=== PATIENT | female | born 1980 | race Caucasian/White ===

== ENCOUNTER 2019-01-28 04:41 | Inpatient (IN) | payer BC ==
[2019-01-28] MEDS ORDERED: MIDAZOLAM HCL 2 MG/2 ML INJ IV PRN (04:48)
[2019-01-28] MEDS ORDERED: PROMETHAZINE 25 MG/ML VIAL IV PRN (04:48)
[2019-01-28] MEDS ORDERED: MEPERIDINE HCL 25 MG/0.5 ML IV PRN (04:48)
[2019-01-28] MEDS ORDERED: Ringers Lactate 1,000 ML IV PRN (04:48)
[2019-01-28] MEDS ORDERED: METHYLERGONOVINE 0.2MG/ML AMP IM PRN (04:48)
[2019-01-28] MEDS ORDERED: BUTORPHANOL 1 MG/ML INJ IV PRN (04:48)
[2019-01-28] MEDS ORDERED: Ringers Lactate 1,000 ML IV SCH (05:00)
[2019-01-28] MEDS ORDERED: BUPIVACAINE 0.25% PF 10 ML VIAL IV PRN (05:18)
[2019-01-28] MEDS ORDERED: FENTANYL CITR 100 MCG/2 ML IV ONE (05:19)
[2019-01-28] MEDS ORDERED: ROPIVACAINE HCL 100 ML IV PRN (05:19)
[2019-01-28 05:22] VITALS: BMI 27.1
[2019-01-28] MEDS ORDERED: OXYTOCIN/LR 20 UNIT/1,000 ML BAG IV ONE (05:32)
[2019-01-28 05:37] LABS: Urine Appearance CLEAR; Urine Bilirubin NEGATIVE (NEG); Urine Blood 1+ (NEG); Urine Color YELLOW; Urine Glucose NEGATIVE (NEG); Urine Microscopic Reflex ORDER UMIC; Urine Protein NEGATIVE (NEG); Urine Specific Gravity 1.025 (1.005-1.030); Urine Urobilinogen 0.2 mg/dL (0.2-1.0)
[2019-01-28 05:38] LABS: Absolute Lymphocytes (CBC) 2.4 K/uL (0.7-4.9); Basophils % 0.6 % (0-1.3); Hematocrit 42.1 % (36.0-45.0); Lymphocytes % 19.9 % (15.3-44.8); MPV 7.4 fL (7.6-11.3); RBC Red Blood Cell Count 4.56 M/uL (3.86-4.86)
[2019-01-28] MEDS ORDERED: PENICILLIN 5 MU in NA CHLORIDE 0.9% 100 ML IV ONE (06:00)
[2019-01-28] MEDS ORDERED: LIDOCAINE 1% MPF 30 ML VIAL ONE (06:03)
[2019-01-28 06:07] LABS: Urine Bacteria <20 /HPF (<20); Urine Culture Reflex Order NOT NEEDED
--- NOTE | 2019-01-28 07:00 | PREOPHP ---
Date of Admission: 01/28/2019 A 38-year-old, 2, para 1, 40 weeks gestation, followed initially by Dr. Darby then by Dr. Rhys mckeon. Admitted to Labor and delivery in active labor. Jam every 2 minutes at 5 cm with bu lging membranes. Rh negative. Has received RhoGAM during the . Rubella immune and beta st rep positive. Penicillin prophylaxis was ordered on admission. Vital signs all stable. No other si gnificant history. Delivery anticipated relatively soon. CAROLINE/JEANMARIE Voice ID: [id number]
--- NOTE | 2019-01-28 07:09 | DN ---
Surgeon: Allan Spear MD Summary: A 38-year-old, 2, para 1, 40 weeks gestation, Rh negative. Has received RhoGAM. B eta strep positive. One dose of 5 million units of penicillin ordered and given during the labor. P atient progressed rapidly at 9 cm, rupture of membranes, clear fluid. Second stage of about 20 minut es. Spontaneous vaginal delivery of estimated 6 pounds plus male . Apgars 9 and 9. Cord arou nd the shoulder area. Schultze delivery of the placenta, which was inspected and noted be intact and normal. Less than 300 cc blood loss. Small first-degree episiotomy performed and then developed in to a very small second-degree, all repaired with 2-0 chromic under local infiltration. The patient t olerated all procedures well. Final Diagnoses: Term intrauterine . Rh negative. RhoGAM pending. Beta strep positive. Penicillin prophylaxis given. Vaginal delivery. CAROLINE/JEANMARIE Voice ID: [id number] Report ID: [id number]
[2019-01-28] MEDS ORDERED: INFLUENZA VACCINE (for 3y+) 0.5 ML DOSE IMVAC ONE (09:00)
[2019-01-28] MEDS ORDERED: PENICILLIN 2.5 MU in NA CHLORIDE 0.9% 100 ML IV SCH (10:00)
[2019-01-28 16:03] LABS: RPR (Rapid Plasma Reagin) NON-REACT (NON-REACT)
--- NOTE | 2019-01-29 08:17 | P.PN ---
Date of Service: 01/29/19 S-No complaints O-Afeb, vs stable, possible intertrigo under breasts A-Satisfactory P-Lotrimin to under breast area, possible dismissal depending on infant status
[2019-01-29] MEDS ORDERED: CLOTRIMAZOLE 1% CREAM 15 GM TOP SCH (09:00)
[2019-01-30 07:40] VITALS: BP 116/78; TEMP 97.9
[2019-01-30] MEDS ORDERED: INFLUENZA VACCINE (for 3y+) 0.5 ML DOSE IMVAC ONE (09:00)
[2019-01-31 04:40] LABS: HBsAG Nonreactive (Nonreactive)
--- NOTE | 2019-02-01 10:26 | DS ---
Date of Discharge: 01/30/2019 Final Hospital Discharge Diagnosis: Term delivered, advanced maternal age. Complications: None. Procedures: Artificial rupture of membranes, spontaneous controlled vaginal delivery, midline episio aguilar with repair. Hospital Course: Patient is a 38-year-old female, 2, para 1-0-0-1, who was admitted in active rapidly advancing labor. She received 1 dose of penicillin for prophylaxis again st beta strep carriage, but did not receive a second dose because of the rapidity of labor. She deli sonya by spontaneous controlled vaginal delivery small episiotomy of a 6+ pound male . She was dismissed on the second day so could be monitored for evidence of infection. She was dismissed to be seen back in my office in 1 week for followup. Lab work included admission hemog lobin and hematocrit 14.8 and 42.1. Negative urinalysis. RPR was nonreactive. She has Rh negative blood type, cord blood type was Rh negative, so she did not need RhoGAM. She was dismissed with the usual post vaginal delivery activity restrictions, take ibuprofen or Tylenol for discomfort. FAWAD/JEANMARIE Voice ID: [id number] Report ID: [id number]
== END 2019-01-30 09:15 | disposition home or self-care (01) | DRG 807 ==
LOC: L&D 04:41 → 2ND-WC 04:49
PROVIDERS: ADMIT Specialist; ATTEND Specialist
PROC: 10E0XZZ Delivery of Products of Conception, External Approach (ICD-10-PCS; principal; 2019-01-28)
PROC: 0KQM0ZZ Repair Perineum Muscle, Open Approach (ICD-10-PCS; 2019-01-28)
PROC: 10907ZC Drainage of Amniotic Fluid, Therapeutic from Products of Conception, Via Natural or Artificial Opening (ICD-10-PCS; 2019-01-28)
DX: O70.1 Second degree perineal laceration during delivery (principal); Z37.0 Single live birth; O99.824 Streptococcus B carrier state complicating childbirth; O69.2XX0 Labor and delivery complicated by other cord entanglement, with compression, not applicable or unspecified; Z3A.40 40 weeks gestation of pregnancy; Z23 Encounter for immunization; L30.4 Erythema intertrigo; O75.89 Other specified complications of labor and delivery
CPT/HCPCS: 36415; 81003; 81015; 85025; 86592; 86901; 87340; 90471; J2175; J2210; J2250; J2590; J7120; Q2035